=== PATIENT | female | born 1990 | race Caucasian/White ===

== ENCOUNTER → 2023-09-04 06:30 | Day surgery (SDC) | payer BC, SELFPAY | LOC: GI 06:30 | PROVIDERS: ATTENDING PHYSICIAN Internal Medicine Gastroenterology | DX: R07.89 Other chest pain (principal); R13.14 Dysphagia, pharyngoesophageal phase; K22.2 Esophageal obstruction; K44.9 Diaphragmatic hernia without obstruction or gangrene; K21.00 Gastro-esophageal reflux disease with esophagitis, without bleeding; R12 Heartburn | CPT/HCPCS: 43249; 88305 ==

== ENCOUNTER 2024-02-26 10:54 | Emergency (ER) | payer BC, SELFPAY ==
[2024-02-26 10:59] VITALS: BP 138/96
--- NOTE | 2024-02-26 11:31 | ED.GENMED ---
History of Present Illness
General
Chief Complaint: Abdominal Pain
Source: patient
Time Seen by Provider: 02/26/24 11:18
History of Present Illness
History of Present Illness:
33yoF with a history of GERD, IBS, hiatal hernia, and Schatzki ring s/p dilation presenting for evaluation of abdominal pain. Patient started with vomiting and diarrhea two days ago which has since resolved. She developed pain in her RUQ yesterday
afternoon around 11am. The pain is described as sharp and stabbing. Pain radiates to the R flank and RLQ. Pain is worse with hiccuping, yawning, and coughing. She reports continued nausea. Patient was seen at [place] ED last night for these
symptoms. She had a CT abdomen without contrast that was unremarkable. She follows with [facility], Dr. Santiago. She called her GI office today and she was advised to go to the ED for evaluation. Patient believes she may have
pancreatitis as she recently started taking semaglutide about 6 weeks ago. Previous abdominal surgeries include a cholecystectomy and ovarian cyst removal. LMP was <1 week ago.
Phy Exam
General Physical Exam
General Presentation: well appearing and no apparent distress
General age: appears stated age
General Skin: warm and dry
General Habitus: normal
General Mental: alert
Cardiovascular Exam
Cardiovascular Exam: regular rate/rhythm
Pulmonary Exam
Pulmonary Exam: lungs clear, no respiratory distress, no crackles and no wheezing
Gastrointestinal Exam
Gastrointestinal Exam: soft, non distended, cva tenderness and tender (+RUQ and RLQ tenderness. +R CVA tenderness. No guarding or rebound. )
Michael Coma Scale
Eye Opening: Spontaneous
Verbal Response: Oriented
Motor Response: Obeys Commands
GCS Total Score: 15
Skin Exam
Skin Exam: normal color and warm/dry
Psychiatric Exam
Psychiatric Exam: normal mood/affect
Course
Orders/Labs/Results
Orders:
Orders
02/26/24 11:20
Test Result ONCE
02/26/24 11:30
CT Abd/pel W Iv And Oral Contr Urgent
Comment:
Reason For Exam: R sided abd pain
0.9% Sodium Chloride 1000 ml [Nss] 1,000 ml IV BOLUS
Fentanyl Citrate/Pf [Sublimaze] 50 mcg IV NOW STA
Iohexol [Omnipaque] See Protocol PO NOW STA
Ketorolac [Toradol] 15 mg IV NOW STA
Ondansetron HCl [Zofran] 4 mg PO NOW STA
02/26/24 11:48
Urinalysis Reflex To Culture Urgent
Date Specimen was Collected: 02/26/24
Time Specimen was Collected: 11:44
Urine Microscopic Reflex Cult Urgent
Urine Culture Urgent
PAM Source: U
Specimen Description:
Date Specimen was Collected: 02/26/24
Time Specimen was Collected: 11:44
02/26/24 11:58
Complete Blood Count/With Diff Urgent
Comprehensive Metabolic Panel Urgent
HCG, Serum Qualitative Screen Urgent
Lipase Urgent
02/26/24 12:04
Ondansetron Injectable [Zofran] 4 mg .ROUTE .STK-MED ONE
02/26/24 12:08
Ondansetron Injectable [Zofran] 4 mg IV NOW STA
Abnormal Lab Results
02/26/24 02/26/24
11:48 11:58
MCV 80.9 L fL
(81.0-99.0)
MPV 12.4 H fL
(7.4-10.4)
Neutrophils % 40.5 L %
(42.2-75.2)
Monocytes % 10.0 H %
(1.7-9.3)
Carbon Dioxide 21 L mmol/L
(22-30)
AST 38 H U/L
(14-36)
ALT 48 H U/L
(0-35)
Urine Ketones Trace A
(Negative)
Urine Bilirubin 1+ A
(Negative)
Leukocyte Esterase Rfl 1+ A
(Negative)
Urine Bacteria (Reflex) Few A
(Negative)
02/26/24 11:58
02/26/24 11:58
Vital Signs
Initial and Last Documented VS:
Initial Vital Signs
Temp Pulse Resp BP Pulse Ox
98 F 75 16 138/96 100
02/26/24 10:59 02/26/24 10:59 02/26/24 10:59 02/26/24 10:59 02/26/24 10:59
Last Documented Vital Signs
Temp Pulse Resp BP Pulse Ox
98 F 86 16 119/79 97
02/26/24 10:59 02/26/24 16:02 02/26/24 16:02 02/26/24 16:02 02/26/24 16:02
MDM/Problems Addressed
Differential Diagnosis Includes:
33yoF here with RUQ pain x 1 day. Radiates to RLQ and R flank. Associated with nausea. Seen at an outside ED yesterday for the same and had a CT without contrast which was unremarkable. Hx of prior cholecystectomy. She is afebrile and
hemodynamically stable. She is well appearing in no distress. No signs of peritonitis on abdominal exam. Differential diagnosis includes but is not limited to: choledocholithiasis, pancreatitis, colitis, appendicitis, pyelonephritis, kidney stone,
nonspecific abdominal pain
Initial ED plan: Check abdominal labs, HCG, UA, and CT abdomen with IV/PO contrast. IV fentanyl, Toradol, Zofran, and fluid bolus for symptoms.
*Critical Care Note
Total Time (30-74mins, 75-104mins- exclusive of procedures): Not Applicable
Update Note
Update Note:
Mild transaminitis noted with AST of 38 and ALT of 48. Remainder of labs unremarkable including normal white count and lipase. 1+ leukocytes noted on urinalysis although microscopic analysis does not show any convincing evidence of a UTI. CT
abdomen is negative for acute findings. Patient requesting to be seen by gastroenterology team. GI AP spoke with patient at bedside and provided a prescription for outpatient lipase and LFT recheck on Thursday. She is stable for discharge. Advised
f/u with GI and ED return precautions discussed. She was discharged in stable condition.
ED Attending Note
-
Portions of this chart may have been created with voice recognition software.� Occasional wrong word or��sound alike� substitutions may have occurred due to the inherent limitations of voice recognition software.
Discharge Plan
Departure
Patient Disposition: Home (Routine Discharge)
Date of Disposition: 02/26/24
Time of Disposition: 16:28
Patient with high blood pressure during this ER visit?: No
Discharge Problem:
Right upper quadrant pain
Instructions: Abdominal Pain
Referrals:
Inga Obrien DO [Family Provider] -
Stand Alone Forms: Return to Work
Activity Restrictions/Additional Instructions:
Have your repeat lab work done on Thursday.
Please follow-up with gastroenterology. Return to the ER with any new or worsening symptoms.
Interventions
Interventions:
*Risk Screen - Suicide Last Done: 02/26/24 10:59
*General Assessment Last Done: 02/26/24 10:59
*Neglect/Abuse Screening Last Done: 02/26/24 10:59
ED- Fall Risk Assessment Last Done: 02/26/24 11:37
*ED COVID-19 Vaccine History Last Done: 02/26/24 11:36
*Nursing Disposition Last Done: 02/26/24 16:47
ES-Uprkbj-Wemefqwjfx Assessment Last Done: 02/26/24 11:38
Discharge Date and Time
Discharge Date/Time: 02/26/24 16:49
Print Language: BELARUSIAN
[2024-02-26 11:36] VITALS: BMI 28.0
[2024-02-26] MEDS: OMNIPAQUE 50 ML PO (11:49)
[2024-02-26] MEDS: NSS 1000 IV (12:01)
[2024-02-26] MEDS: ZOFRAN 4 MG IV (12:09)
[2024-02-26] MEDS: SUBLIMAZE 50 MCG IV (12:09)
[2024-02-26] MEDS: TORADOL 15 MG IV (12:09)
[2024-02-26 12:17] LABS: Urine Albumin Trace (Neg - Trace); Urine Bilirubin 1+ (Negative); Urine Character Clear (Clear); Urine Color Yellow; Urine Glucose Negative (Negative); Urine Ketone Trace (Negative); Urine Leukocyte 1+ (Negative); Urine Nitrite Negative (Negative); Urine Occult Blood Negative (Negative); Urine Specific Gravity 1.025 (<1.030); Urine Urobilinogen 1+ (Neg - 1+)
[2024-02-26 12:28] LABS: % Basophils 0.3 % (0-2); % Eosinophils 0.8 % (0-6); % Immature Granulocytes 0.2 % (0-0.5); % Lymphocytes 48.2 % (20.5-51.1); % Neutrophils 40.5 % (42.2-75.2); Absolute Eosinophils 0.1 10^3/uL (0-0.7); Absolute Monocytes 0.6 10^3/uL (0.1-0.6); Absolute Neutrophils 2.5 10^3/uL (1.4-6.5); Hematocrit 39.5 % (37.0-47.0); Hemoglobin 13.5 g/dL (12.0-16.0); Mean Corp Hgb Conc. 34.2 g/dL (33.0-37.0); Mean Corpuscular Hgb 27.7 pg (27.0-31.0); Mean Corpuscular Volume 80.9 fL (81.0-99.0); Mean Platelet Volume 12.4 fL (7.4-10.4); Nucleated Red Blood Cells % 0 %; Platelet Count 292 10^3/uL (130-400); Red Blood Cell Count 4.88 10^6/uL (4.20-5.40); Red Cell Dist. Width 13.4 % (11.5-14.5); White Blood Cell Count 6.2 10^3/uL (4.8-10.8)
[2024-02-26 12:33] LABS: HCG, Serum Qualitative Screen Negative
[2024-02-26 12:39] LABS: ALT (SGPT) 48 U/L (0-35); AST (SGOT) 38 U/L (14-36); Albumin 4.2 g/dl (3.5-5.0); Alkaline Phosphatase 108 U/L (38-126); Blood Urea Nitrogen 7 mg/dl (7-17); Calcium 9.6 mg/dl (8.4-10.2); Carbon Dioxide 21 mmol/L (22-30); Chloride 107 mmol/L (98-107); Estimated Creatinine Clearance 101 ml/min; Glucose 79 mg/dl (70-99); Lipase 227 U/L (23-300); Potassium 4.2 mmol/L (3.5-5.1); Sodium 142 mmol/L (135-145); Total Bilirubin 0.7 mg/dl (0.2-1.3); Total Protein 6.9 g/dl (6.3-8.2); eGFR > 60.00
[2024-02-26 13:01] LABS: Urine Bacteria Few (Negative); Urine Mucus Many; Urine Red Blood Cell 0-2 /HPF (0-2)
[2024-02-26 13:15] VITALS: BP 114/81
[2024-02-26 16:02] VITALS: BP 119/79
== END 2024-02-26 16:49 | disposition home or self-care (01) ==
LOC: EMR 10:54
PROVIDERS: Physician Assistant; EMERGENCY PHYSICIAN Emergency Medicine; FAMILY PHYSICIAN Family Medicine
DX: R10.11 Right upper quadrant pain (principal); K21.9 Gastro-esophageal reflux disease without esophagitis; K58.9 Irritable bowel syndrome, unspecified
CPT/HCPCS: 99284; 96374; 96375; 96361; 74177; 80053; 81003; 81015; 83690; 84703; 85025; 87086; Q9967

== ENCOUNTER → 2024-03-07 06:17 | Day surgery (SDC) | payer BC, SELFPAY | LOC: GI 06:17 | PROVIDERS: ATTENDING PHYSICIAN Internal Medicine Gastroenterology | DX: K62.5 Hemorrhage of anus and rectum (principal); K64.8 Other hemorrhoids | CPT/HCPCS: 45378 ==

== ENCOUNTER 2025-03-14 13:40 | Emergency (ER) | payer BC, SELFPAY ==
[2025-03-14 13:46] VITALS: BP 144/91
--- NOTE | 2025-03-14 17:33 | ED.GENMED ---
History of Present Illness
General
Chief Complaint: Bowel Problem
Time Seen by Provider: 03/14/25 17:21
Nursing documentation reviewed up to this point in time: agreed with
History of Present Illness
History of Present Illness:
34-year-old female presents to the ER for evaluation of inability to have a bowel movement in the last 9 days. Patient states that she sometimes has experience constipation but no more than 3 days. She states that last Thursday she started using
MiraLAX along with senna. She has not had any significant stool production since this time. She does report that she is passing gas. She reports severe intermittent cramping discomfort. She reports decreased appetite but no vomiting. She was
seen urgent care yesterday and given lactulose with no change in her symptoms prompting visit to the ER today. She denies fevers. She has no prior history of abdominal surgery. She denies dysuria or change in urine output.
Review of Systems
Review of Systems
Allergies reviewed?: Yes
Phy Exam
Physical Exam
Physical Exam:
Patient is awake, alert, appears in no acute distress, head is NCAT, PERRL, EOMI mucous membranes moist, conjunctiva pink, heart regular rate and rhythm without murmurs or ectopy, lungs are clear to auscultation without wheezes rales or rhonchi, no
JVD, abdomen is soft and nontender on palpation, extremities without edema, GCS is 15
Course
Orders/Labs/Results
Orders:
Orders
03/14/25 13:41
Abdominal Series [CR Obstruct Series W/pa Chest] Urgent
Comment:
Reason For Exam: constipation
03/14/25 17:32
Urinalysis Urgent
Date Specimen was Collected: 03/14/25
Time Specimen was Collected: 17:36
0.9% Sodium Chloride 1000 ml [Nss] 1,000 ml IV BOLUS
Ketorolac [Toradol] 15 mg IV NOW STA
03/14/25 17:47
Basic Metabolic Panel Urgent
Complete Blood Count/No Diff Urgent
03/14/25 18:26
Enema- Treatment ONCE
Type: Milk of Molasses
Abnormal Lab Results
03/14/25
17:47
MPV 11.4 H fL
(7.4-10.4)
03/14/25 17:47
03/14/25 17:47
Electrolytes within normal limits, kidney function normal, CBC normal
Vital Signs
Initial and Last Documented VS:
Initial Vital Signs
Temp Pulse Resp BP Pulse Ox
98.7 F 87 18 144/91 100
03/14/25 13:46 03/14/25 13:46 03/14/25 13:46 03/14/25 13:46 03/14/25 13:46
Last Documented Vital Signs
Temp Pulse Resp BP Pulse Ox
98.7 F 95 18 130/90 99
03/14/25 13:46 03/14/25 19:53 03/14/25 19:53 03/14/25 19:53 03/14/25 19:53
MDM/Problems Addressed
Differential Diagnosis Includes:
Differential diagnosis to consider but not limited to constipation, dehydration, bowel obstruction, UTI along with other etiologies considered
*Radiology
Radiology exam reviewed: radiology read reviewed (Stool throughout, no obstruction)
*Pulse Oximetry
SaO2: 100
Oxygen Mode of Delivery: Room air
Patient hypoxic: no
*Critical Care Note
Total Time (30-74mins, 75-104mins- exclusive of procedures): Not Applicable
Update Note
Update Note:
I discussed with patient possible evaluation in the emergency department including just treatment with enema. Patient is very concerned that there is something else going on. Will check screening labs and give IV fluids along with a dose of
Toradol while awaiting obstruction series.
1844: I discussed with patient very reassuring labs, no evidence for obstruction and benefit of treatment with enema. Patient is in agreement.
1944: Patient had bowel movement after enema. He feels comfortable and would like to be discharged home. I discussed with patient need to continue using MiraLAX and to speak with her rug inspector with regard to further treatment plan to
avoid further significant constipation. Patient expressed understanding of discharge plan and strict return precautions. She had no questions prior to leaving the department.
ED Attending Note
-
Portions of this chart may have been created with voice recognition software.� Occasional wrong word or��sound alike� substitutions may have occurred due to the inherent limitations of voice recognition software.
Discharge Plan
Departure
Patient Disposition: Home (Routine Discharge)
Date of Disposition: 03/14/25
Time of Disposition: 19:54
Patient with high blood pressure during this ER visit?: No
Discharge Problem:
Constipation
Instructions: Constipation, Adult (DC)
Activity Restrictions/Additional Instructions:
Encourage fluids. Continue using MiraLAX daily. You may need to take MiraLAX twice daily if you are not having regular bowel movements each day. Please contact your rug inspector as you may benefit from additional medication support given
your constipation. Return to the ER for any concerns.
Interventions
Interventions:
*Risk Screen - Suicide Last Done: 03/14/25 13:46
*General Assessment Last Done: 03/14/25 13:46
*Neglect/Abuse Screening Last Done: 03/14/25 13:46
*Nursing Disposition Last Done: 03/14/25 19:55
TI-Vzcjwp-Ehmwihoyjl Assessment Last Done: 03/14/25 17:48
Discharge Date and Time
Print Language: ROMANIAN
[2025-03-14] MEDS: NSS 1000 IV (17:47)
[2025-03-14] MEDS: TORADOL 15 MG IV (17:48)
[2025-03-14 18:13] LABS: Hematocrit 40.6 % (37.0-47.0); Hemoglobin 13.5 g/dL (12.0-16.0); Mean Corp Hgb Conc. 33.3 g/dL (33.0-37.0); Mean Corpuscular Volume 82.0 fL (81.0-99.0); Platelet Count 332 10^3/uL (130-400); Red Cell Dist. Width 13.7 % (11.5-14.5)
[2025-03-14 18:29] LABS: Blood Urea Nitrogen 7 mg/dl (7-17); Calcium 8.6 mg/dl (8.4-10.2); Carbon Dioxide 25 mmol/L (22-30); Chloride 106 mmol/L (98-107); Glucose 99 mg/dl (70-99); Potassium 3.9 mmol/L (3.5-5.1); Sodium 136 mmol/L (135-145); eGFR > 60.00
[2025-03-14 19:53] VITALS: BP 130/90
== END 2025-03-14 20:16 | disposition home or self-care (01) ==
LOC: EMR 13:40
PROVIDERS: EMERGENCY PHYSICIAN Emergency Medicine; FAMILY PHYSICIAN Family Medicine
DX: K59.00 Constipation, unspecified (principal); R10.9 Unspecified abdominal pain
CPT/HCPCS: 96374; 96361; 99284; 74022; 80048; 85027